=== PATIENT | female | born 1940 | race Caucasian/White ===

== ENCOUNTER 2019-07-24 19:58 | Inpatient (IN) | payer MEDICARE, BC ==
[~2019-07-24] VITALS: Ht 157.5 cm; Wt 57.1 kg
[2019-07-24 21:31] VITALS: BP 146/67; PULSE 72; TEMP 98.1
--- NOTE | 2019-07-24 21:45 | NUR ---
Pt arrived to the floor via strecher. Pt stated that she is ok with pain as long as she isn't moving. Pt was at bedside. Pt has been informed about her call light and her phone. Pt is slightly confused but is able to answer some questions. Pt currently has her call light within reach and her bed is in lowest position.
[2019-07-24 22:02] LABS: BASO % 0.3 % (0.0-2.0); EOS % 0.1 % (0-4.0); GRAN # 12.9 (1.4-6.5); GRAN % 89.4 % (42.2-75.2); HEMOGLOBIN 12.4 g/dl (12.5-16.0); LYMPH # 0.7 (1.2-3.4); LYMPH % 4.6 % (20.0-51.0); MEAN CELL VOLUME 91 fl (80.0-100.0); MEAN CORPUSCULAR HEMOGLOBIN 31 pg (27.0-31.0); MEAN CORPUSCULAR HGB CONC 34 g/dl (33.0-37.0); MEAN PLATELET VOLUME 9.1 fl (7.4-10.4); MONO # 0.7 (0.1-0.6); MONO % 5.1 % (1.7-9.3); PLATELET COUNT 231 K/mm3 (130-400); RED BLOOD COUNT 3.97 M/mm3 (4.10-5.30); REDCELL DISTRIBUTION WIDTH-CV 13.2 % (11.5-14.5)
[2019-07-24 22:04] LABS: HEMATOCRIT 36.1 % (37.0-47.0)
[2019-07-24 22:05] LABS: INR 1.1 (0.8-3.0); PROTHROMBIN TIME 11.8 SECONDS (9.7-12.8)
[2019-07-24 22:08] LABS: ALBUMIN 4.1 gm/dL (3.5-5.0); BILIRUBIN,TOTAL 0.5 mg/dL (0.0-1.0); CALCIUM 8.9 mg/dL (8.4-10.2); CREATININE, serum 0.78 (0.52-1.25); POTASSIUM 3.9 mmol/L (3.4-5.0); TOTAL PROTEIN 7.1 gm/dL (6.4-8.2)
[2019-07-24 22:15] LABS: PRE ALBUMIN 16.8 mg/dL (17.6-36.0)
[2019-07-24 23:55] LABS: COLLECTION METHOD CATHETER
[2019-07-25] VITALS (14 sets, daily range): BP systolic 102–147; BP diastolic 47–94; PULSE 48–65; TEMP 97.6–98.2
[2019-07-25 00:01] LABS: MUCOUS Present /lpf; PH 5 (5-8); SQUAMOUS EPITHELIAL 0-2 /hpf; URINE APPEARANCE Hazy; URINE BACTERIA None Seen /hpf; URINE BILIRUBIN Negative (NEGATIVE); URINE BLOOD 2+ (NEGATIVE); URINE COLOR Yellow; URINE GLUCOSE Negative (NEGATIVE); URINE KETONE Trace (NEGATIVE); URINE LEUKOCYTE ESTERASE Negative (NEGATIVE); URINE NITRATE Negative (NEGATIVE); URINE PROTEIN(semi-quant) Negative (NEGATIVE); URINE RBC 20-50 /hpf; URINE UROBILINOGEN Negative (NEGATIVE)
[2019-07-25] MEDS ORDERED: ESTRACE0.5 MG PO (02:16)
[2019-07-25] MEDS ORDERED: PAXIL 20MG20 MG PO (02:18)
[2019-07-25] MEDS ORDERED: NEURONTIN100 MG/CAP PO (02:19)
[2019-07-25] MEDS ORDERED: LIPITOR20 MG PO (02:20)
[2019-07-25] MEDS ORDERED: ASPIRIN 81M81 MG/TA2 PO (02:21)
--- NOTE | 2019-07-25 05:37 | NUR ---
Pt currently sleeping in bed.
--- NOTE | 2019-07-25 08:30 | NUR ---
Orthopedics saw patient. No c/o pain. To surgery per bed. Spouse here.
[2019-07-25 08:32] LABS: BASO % 0.5 % (0.0-2.0); EOS # 0.1 (0.0-0.7); EOS % 1.3 % (0-4.0); GRAN # 6.4 (1.4-6.5); GRAN % 74.1 % (42.2-75.2); HEMOGLOBIN 11.9 g/dl (12.5-16.0); LYMPH # 1.3 (1.2-3.4); LYMPH % 15.3 % (20.0-51.0); MEAN CELL VOLUME 92 fl (80.0-100.0); MEAN CORPUSCULAR HEMOGLOBIN 31 pg (27.0-31.0); MEAN CORPUSCULAR HGB CONC 33 g/dl (33.0-37.0); MEAN PLATELET VOLUME 9.3 fl (7.4-10.4); MONO # 0.7 (0.1-0.6); MONO % 8.6 % (1.7-9.3); PLATELET COUNT 207 K/mm3 (130-400); REDCELL DISTRIBUTION WIDTH-CV 13.3 % (11.5-14.5)
[2019-07-25 08:34] LABS: HEMATOCRIT 35.7 % (37.0-47.0)
[2019-07-25 08:49] LABS: CALCIUM 8.3 mg/dL (8.4-10.2); CREATININE, serum 0.74 (0.52-1.25); POTASSIUM 3.8 mmol/L (3.4-5.0)
--- NOTE | 2019-07-25 09:45 | NUR ---
Returned to room per bed from surgery. Gauze dressing CDI to left hip. No c/o pain. Vital signs stable. Spouse at bedside.
--- NOTE | 2019-07-25 16:10 | NUR ---
Plan: Patient plans to return home in [facility] with Spouse Farideh . Assessment: SW met with patient about DC. Patient reports that her PCP is Dr. Scott Pollard. Patient reports that her DTR Nakia is apart of her care . Patient reports that they use [employer] [facility] and short term [facility]. Patient reports that they have a living will. Patient shares that she uses a walker as needed. No care concerns. Denies the need for home healthcare. Patient denies having any care cocnerns. Action: Educated on supports in community. Will continue to follow.
--- NOTE | 2019-07-25 18:00 | NUR ---
VSS. Medicated with [place] for mild left hip pain. Dressing CDI. Took food and fluids well. Uses incentive spirometer frequently.
--- NOTE | 2019-07-25 19:45 | NUR ---
Assessment complete. Resting in bed. Forgets that she fractured her hip and had surgery today, reoriented, but continues forgetful. Reports pain at tolerable level, though unable to rate numerically. Denies needs at this time.
[2019-07-26] VITALS (8 sets, daily range): BP systolic 113–170; BP diastolic 58–83; PULSE 60–85; TEMP 97.6–98.1
--- NOTE | 2019-07-26 01:55 | NUR ---
Increasing agitation and disorientation. Calling loudly for "Kaylie" and insisting that she was "going home." Multiple attempts to rise from bed to "drive the mile home." Pt lives @ 60 [place] away. Attempts to reorient and calm pt unsuccessful. Provider notified and order for haldol received.
--- NOTE | 2019-07-26 02:07 | NUR ---
GINA Azar notified of combative behavior and trying to leave AMA. Yelling out stating she is leaving regardless of what staff say. Spoke with Marcella who attempted to calm patient with no luck. New orders received and administered.
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
--- NOTE | 2019-07-26 07:07 | NUR ---
REPORT FROM SIVA ECHOLS.
[2019-07-26 08:04] LABS: BASO % 0.2 % (0.0-2.0); EOS % 0.1 % (0-4.0); GRAN # 15.3 (1.4-6.5); GRAN % 86.2 % (42.2-75.2); HEMATOCRIT 39.1 % (37.0-47.0); HEMOGLOBIN 13.2 g/dl (12.5-16.0); LYMPH # 1.1 (1.2-3.4); LYMPH % 5.9 % (20.0-51.0); MEAN CELL VOLUME 92 fl (80.0-100.0); MEAN CORPUSCULAR HEMOGLOBIN 31 pg (27.0-31.0); MEAN CORPUSCULAR HGB CONC 34 g/dl (33.0-37.0); MEAN PLATELET VOLUME 10.4 fl (7.4-10.4); MONO # 1.3 (0.1-0.6); PLATELET COUNT 233 K/mm3 (130-400); RED BLOOD COUNT 4.27 M/mm3 (4.10-5.30); REDCELL DISTRIBUTION WIDTH-CV 13.3 % (11.5-14.5)
[2019-07-26 08:15] LABS: CALCIUM 9.1 mg/dL (8.4-10.2); CREATININE, serum 0.79 (0.52-1.25); POTASSIUM 4.1 mmol/L (3.4-5.0)
--- NOTE | 2019-07-26 08:25 | NUR ---
Pt continues to experience confusion as to her current situation.Spouse Kaylie here to visit. Reminded pt not to tug on IV tubing.
--- NOTE | 2019-07-26 08:27 | NUR ---
PT RESTING IN BED ATE SM AMT OF BREAKFAST. RAY AT BEDSIDE. SIVA ECHOLS RESTARTED 20 GA TO LFA. PT TOOK AM MEDS WITHOUT INCIDENT.
--- NOTE | 2019-07-26 09:22 | NUR ---
PT EATING AND DRINKING WELL LAST DOSE OF ANCEF IN. WELSH TO DD. IV TO INT.
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
--- NOTE | 2019-07-26 12:11 | NUR ---
First visit from the body artist. No needs right now.
--- NOTE | 2019-07-26 15:59 | NUR ---
Zaira, at [facility], reports that they should be able to accept the patient when ready to discharge and that Dr. Marks would be the provider following her while there. She states that a doc-to-doc call would need to be made to [phone]. The patient's RN, Gasper, informed SW that the patient's daughter, Aislinn Meadows (ph#[phone]), had some questions for SW. MANISH then contacted Aislinn and updated her on the above information. Aislinn reports that she would like to talk to the patient's about swing bed vs returning home with family assistance from her and her sister. SW to follow up with the patient's and will continue to follow.
--- NOTE | 2019-07-26 16:35 | NUR ---
MANISH received a voicemail from the patient's daughter, Aislinn. Aislinn reports that her and the patient's have decided to proceed with [facility] and that she can provide transport for the patient. MANISH to continue to follow.
--- NOTE | 2019-07-26 18:54 | NUR ---
Report to Sofy ECHOLS.
--- NOTE | 2019-07-26 20:40 | NUR ---
Pt. laying in bed at this time. Pt. is alert and very confused. Pt. thinks she is at home. Dressing to lt. hip CDI with gauze. Rene to DD with yellow clear urine noted. Pt. reports her hip hurts, gave 50 mg Ultram. Pt. denies further needs, bed alarm on.
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
--- NOTE | 2019-07-26 23:00 | NUR ---
Pt.'s bed alarm went off. Pt. was trying to get up. Asked the pt. where she was going. Pt. stated "I need to lock all the doors". Again tried to re-orient pt. Pt. started to get upset. Then this nurse helped the pt. up to see that the door to the room led to the keen and that it did not lock. Once pt. saw the door, she walked back to bed. Pt. repositioned for comfort. Pt. denied pain at this time. Bedalarm on, call light within reach.
[2019-07-27 07:27] VITALS: BP 124/68; PULSE 65; TEMP 97.8
[2019-07-27 07:31] LABS: BASO # 0.1 (0.0-0.2); BASO % 0.4 % (0.0-2.0); EOS # 0.2 (0.0-0.7); EOS % 1.5 % (0-4.0); GRAN # 9.5 (1.4-6.5); GRAN % 77.2 % (42.2-75.2); HEMOGLOBIN 12.3 g/dl (12.5-16.0); LYMPH # 1.5 (1.2-3.4); MEAN CELL VOLUME 90 fl (80.0-100.0); MEAN CORPUSCULAR HEMOGLOBIN 31 pg (27.0-31.0); MEAN CORPUSCULAR HGB CONC 35 g/dl (33.0-37.0); MEAN PLATELET VOLUME 9.6 fl (7.4-10.4); MONO % 8.5 % (1.7-9.3); PLATELET COUNT 225 K/mm3 (130-400); RED BLOOD COUNT 3.98 M/mm3 (4.10-5.30); REDCELL DISTRIBUTION WIDTH-CV 13.6 % (11.5-14.5)
[2019-07-27 07:32] LABS: HEMATOCRIT 35.7 % (37.0-47.0)
[2019-07-27 07:43] LABS: CALCIUM 8.8 mg/dL (8.4-10.2); CREATININE, serum 0.57 (0.52-1.25); POTASSIUM 4.1 mmol/L (3.4-5.0)
--- NOTE | 2019-07-27 09:29 | NUR ---
PATIENT SLEEPING IN BED. COVID RESULTS NEG. DR. BLANCA NOTIFIED.
[2019-07-27 11:31] VITALS: BP 133/63; PULSE 63; TEMP 97.5
[2019-07-27] MEDS ORDERED: ASPI325T6 PO (11:50)
[2019-07-27] MEDS ORDERED: TYLENOL 325MG325 MG PO (11:50)
[2019-07-27] MEDS ORDERED: CELEBREX 200MG200 MG PO (11:50)
[2019-07-27] MEDS ORDERED: ULTRAM 50MG TAB50 MG PO (11:51)
[2019-07-27] MEDS ORDERED: OSCAL 500 TAB500 MG PO (11:51)
[2019-07-27] MEDS ORDERED: SEROQUEL50 MG PO (11:51)
[2019-07-27] MEDS ORDERED: GOOD NEIGH1200 MG/15 PO (11:51)
[2019-07-27] MEDS ORDERED: DULCOLAX S10 MG/SUPP RC (11:52)
[2019-07-27] MEDS ORDERED: SENNA-S 50 MG-81 TAB PO (11:52)
[2019-07-27] MEDS ORDERED: DUO-KAPS1 CAP PO (11:52)
[2019-07-27] MEDS ORDERED: VITAMIN C500 MG PO (11:52)
--- NOTE | 2019-07-27 12:50 | NUR ---
The doc-to-doc call was made. The patient is to discharge today, 07/26, to [facility]. Transportation to be by private vehicle, via the patient's daughter (Aislinn). MANISH met with the patient's , Zulema, and presented and read the IM form outloud to him. Zulema verbalized understanding and gave SW approval to sign the form on his behalf. SW provided him with a copy. No additional needs at this time.
--- NOTE | 2019-07-27 14:53 | NUR ---
CALLED REPORT TO LIONEL ECHOLS [facility] PT TRANSFERED at [phone].
== END 2019-07-27 14:20 | disposition swing bed (61) | DRG 482 ==
LOC: MEDICAL 19:58 → SURG 21:25
PROVIDERS: Orthopaedic Surgery; Physician Assistant; ADMIT Hospitalist
PROC: 0QS934Z Reposition Left Femoral Shaft with Internal Fixation Device, Percutaneous Approach (ICD-10-PCS; principal; 2019-07-25 08:30)
DX: S72.002A Fracture of unspecified part of neck of left femur, initial encounter for closed fracture (principal); M51.36 Other intervertebral disc degeneration, lumbar region; E78.5 Hyperlipidemia, unspecified; G62.9 Polyneuropathy, unspecified; D64.9 Anemia, unspecified; D72.829 Elevated white blood cell count, unspecified; R41.0 Disorientation, unspecified; M19.90 Unspecified osteoarthritis, unspecified site; W18.30XA Fall on same level, unspecified, initial encounter; Z86.718 Personal history of other venous thrombosis and embolism; Z90.710 Acquired absence of both cervix and uterus
CPT/HCPCS: 99223-AI; 99231-AI; 99239; A9284; C1713; J0690; J1100; J1630; J2270; J2405; J2704; J3010